=== PATIENT | male | born 1945 | race Caucasian/White ===

== ENCOUNTER 2021-12-01 13:37 | Outpatient (CLI) | payer MEDICARE, BC | END 2021-12-01 13:38 | disposition home or self-care (01) | LOC: CTENTCT 13:37 | PROVIDERS: ATTEND Specialist | DX: H92.10 Otorrhea, unspecified ear (principal) | CPT/HCPCS: 70480 ==

== ENCOUNTER 2022-10-22 17:30 | Emergency (ER) | payer MEDICARE, BC ==
[~2022-10-22 17:30] MED LIST: Iopamidol-370 76% 500 ML 1 ML ONE
[2022-10-22] MEDS ORDERED: Morphine 4 MG/ML VIAL ONE (17:45)
[2022-10-22 17:56] LABS: #Eosinphils 0.1 thou/uL (0.0-0.7); #Lymphocytes 2.2 thou/uL (1.20-3.40); #Monocytes 1.1 thou/uL (0.11-0.59); #Neutrophils 9.9 thou/uL (1.40-6.50); %Basophils 0.4 % (0.0-1.0); %Eosinophils 0.4 % (0.0-10.0); %Lymphocytes 16.7 % (21.0-51.0); %Monocytes 8.5 % (0.0-10.0); %Neutrophils 74.1 % (42.0-75.0); Mean Corpuscular HGB CONC 34.6 g/dL (32.0-36.0); Mean Corpuscular Hemoglobin 33.4 pg (27.0-31.0); Mean Corpuscular Volume 96.7 fl (78.0-98.0); Mean Platelet Volume 8.4 fL (7.4-10.4); Platelet Count 149 10x3/uL (130-400); RBC Distribution Width 11.7 % (11.5-14.5); Red Blood Cell (RBC) Count 4.78 mill/uL (4.70-6.10); White Blood Cell (WBC) Count 13.3 10x3/uL (4.8-10.8)
[2022-10-22 19:01] LABS: Bilirubin Negative (Negative); Blood, Urine Negative (Negative); Clarity Clear (Clear); Glucose, Urine (Dipstick) 200 mg/dL (Negative); Ketone, Urine Negative (Negative); Leukocyte Negative Leu/uL (Negative); Nitrite Negative (Negative); Protein, Urine (Dipstick) Negative (Neg-Trace); Specific Gravity, Urine 1.009 (1.002-1.036); Urobilinogen Normal mg/dL (Less than 2)
[2022-10-22 19:19] LABS: Albumin 4.2 g/dL (3.4-4.8)
[2022-10-22 19:20] LABS: Chloride 103 mmol/L (98-107); Potassium 4.4 mmol/L (3.5-5.1)
[2022-10-22 19:21] LABS: Calcium 10.1 mg/dL (7.8-10.44); Sodium 135 mmol/L (136-145)
[2022-10-22 19:22] LABS: Glucose 168 mg/dL (83-110); Protein, Total 7.2 g/dL (5.8-8.1)
[2022-10-22 19:23] LABS: Anion Gap 10 mmol/L (10-20); Bilirubin, Total 0.8 mg/dL (0.2-1.2); Carbon Dioxide 26 mmol/L (23-31)
[2022-10-22 19:24] LABS: Alkaline Phosphatase 59 U/L (40-110)
[2022-10-22 19:25] LABS: Calc. Creatinine Clearance 0 mL/min (70-130); Estimated GFR 73
[2022-10-22 19:26] LABS: BUN (Urea Nitrogen) 17 mg/dL (8.4-25.7)
[2022-10-22 19:27] LABS: ALT (SGPT) 10 U/L (8-55); AST (SGOT) 10 U/L (5-34)
[2022-10-22 19:28] LABS: Lipase 36 U/L (8-78)
[2022-10-22] MEDS ORDERED: Dicyclomine 20 MG/2 ML VIAL ONE (22:48)
[2022-10-22] MEDS ORDERED: hydrALAZINE 20 MG/ML VIAL ONE (22:48)
== END 2022-10-22 23:53 | disposition home or self-care (01) ==
LOC: ERS 17:30
DX: I10 Essential (primary) hypertension (principal); R10.819 Abdominal tenderness, unspecified site; D72.829 Elevated white blood cell count, unspecified; Z79.01 Long term (current) use of anticoagulants; Z79.84 Long term (current) use of oral hypoglycemic drugs
CPT/HCPCS: 36415; 74177; 80053; 81003; 83690; 85025; 93005; 96372; 96374; 96375; J0360; J2270; Q9967

== ENCOUNTER 2024-07-19 08:37 | Observation (INO) | payer MEDICARE, BC ==
[2024-07-19] MEDS ORDERED: Nitroglycerin 2% Ointment 1 INCH/1 GM Packet ONE (09:14)
[2024-07-19] MEDS ORDERED: Aspirin Chewable 81 MG TAB ONE (09:15)
[2024-07-19] MEDS ORDERED: Nitroglycerin 0.4 MG TAB 1 EACH ONE (09:15)
[2024-07-19 09:19] LABS: ALT (SGPT) 14 U/L (8-55); AST (SGOT) 13 U/L (5-34); Albumin 3.7 g/dL (3.4-4.8); Alkaline Phosphatase 54 U/L (40-110); Anion Gap 8 mmol/L (10-20); BUN (Urea Nitrogen) 18 mg/dL (8.4-25.7); Bilirubin, Total 0.6 mg/dL (0.2-1.2); Calc. Creatinine Clearance 0 mL/min (70-130); Calcium 9.7 mg/dL (7.8-10.44); Carbon Dioxide 26 mmol/L (23-31); Chloride 105 mmol/L (98-107); Estimated GFR 62; Glucose 240 mg/dL (83-110); Lipase 26 U/L (8-78); Potassium 4.3 mmol/L (3.5-5.1); Protein, Total 6.7 g/dL (5.8-8.1); Sodium 135 mmol/L (136-145)
[2024-07-19 09:24] LABS: Troponin I Less than 0.010 ng/mL (< 0.028)
[2024-07-19 09:32] LABS: #Basophils 0.03 10x3/uL (0.0-0.2); %Basophils 0.6 % (0.0-1.0); %Eosinophils 1.4 % (0.0-10.0); %Lymphocytes 25.2 % (21.0-51.0); %Monocytes 8.5 % (0.0-10.0); %Neutrophils 64.1 % (42.0-75.0); Hematocrit 43.6 % (42.0-52.0); Hemoglobin 15.1 g/dL (14.0-18.0); Mean Corpuscular HGB CONC 34.6 g/dL (32.0-36.0); Mean Corpuscular Hemoglobin 33.6 pg (27.0-31.0); Mean Corpuscular Volume 96.9 fL (78.0-98.0); Mean Platelet Volume 9.8 fL (7.4-10.4); Platelet Count 132 10x3/uL (130-400); RBC Distribution Width 12.1 % (11.5-14.5)
[2024-07-19] MEDS ORDERED: Ketorolac Tromethamine 30 MG (1 mL) VIAL IVP PRN (11:06)
[2024-07-19] MEDS ORDERED: Ondansetron PF 4 MG/2 ML Vial IVP PRN (11:06)
[2024-07-19] MEDS ORDERED: Calcium Carbonate 500 MG ChewTAB PO PRN (11:06)
[2024-07-19] MEDS ORDERED: Bisacodyl 10 MG SUPP PR PRN (11:06)
[2024-07-19] MEDS ORDERED: Guaifenesin DM 100-10/5 ML UDCUP PO PRN (11:06)
[2024-07-19] MEDS ORDERED: Iopamidol-370 76% 500 ML MDV (1 ML CHARGE) ONE (12:35)
[2024-07-19 12:50] VITALS: BMI 27.1
[2024-07-19 14:32] LABS: Troponin I Less than 0.010 ng/mL (< 0.028)
[2024-07-19] MEDS ORDERED: Albuterol 2.5 MG (3 mL) NEB NEB PRN (14:33)
[2024-07-19] MEDS ORDERED: Acetaminophen 500 MG TAB ONE (16:35)
[2024-07-19] MEDS: Acetaminophen 325 MG TAB PO PRN (16:38)
[2024-07-19 17:51] LABS: Troponin I Less than 0.010 ng/mL (< 0.028)
[2024-07-19] MEDS: methylPREDNISolone Sod Succ 40 MG VIAL IVP SCH (17:51)
[2024-07-19] MEDS: Gabapentin 300 MG CAP PO SCH (17:52)
[2024-07-19] MEDS: Cyclobenzaprine 10 MG TAB PO SCH (17:57)
[2024-07-19] MEDS: Senokot S 8.6-50 MG TAB PO SCH (20:29)
[2024-07-19] MEDS: Apixaban 5 MG TAB PO SCH (20:29)
[2024-07-19] MEDS: Zolpidem Tartrate 5 MG TAB PO PRN (21:31)
[2024-07-19] MEDS: methylPREDNISolone 4 mg Tablet PO SCH (22:09)
[2024-07-20 04:16] LABS: ALT (SGPT) 12 U/L (8-55); AST (SGOT) 12 U/L (5-34); Albumin 3.7 g/dL (3.4-4.8); Alkaline Phosphatase 51 U/L (40-110); Anion Gap 12 mmol/L (10-20); BUN (Urea Nitrogen) 15 mg/dL (8.4-25.7); Bilirubin, Total 0.6 mg/dL (0.2-1.2); Calc. Creatinine Clearance 74 mL/min (70-130); Calcium 9.8 mg/dL (7.8-10.44); Carbon Dioxide 21 mmol/L (23-31); Chloride 106 mmol/L (98-107); Estimated GFR 74; Globulin 3.1 g/dL (2.4-3.5); Glucose 194 mg/dL (83-110); Potassium 4.2 mmol/L (3.5-5.1); Protein, Total 6.8 g/dL (5.8-8.1); Sodium 135 mmol/L (136-145)
[2024-07-20 04:28] LABS: #Basophils 0.03 10x3/uL (0.0-0.2); #Eosinophils Less than 0.03 10x3/uL (0.0-0.7); %Basophils 0.3 % (0.0-1.0); %Eosinophils 0.1 % (0.0-10.0); %Monocytes 3.2 % (0.0-10.0); %Neutrophils 86.1 % (42.0-75.0); Hematocrit 42.4 % (42.0-52.0); Mean Corpuscular HGB CONC 35.4 g/dL (32.0-36.0); Mean Corpuscular Hemoglobin 32.8 pg (27.0-31.0); Mean Corpuscular Volume 92.6 fL (78.0-98.0); Mean Platelet Volume 10.6 fL (7.4-10.4); Platelet Count 130 10x3/uL (130-400); Red Blood Cell (RBC) Count 4.58 mill/uL (4.70-6.10)
[2024-07-20] MEDS ORDERED: FLU (Fluad Triv) TS24-25 (65UP)/MF59C/PF 45 MCG/0.5 ML Syringe IM ONE (09:00)
[2024-07-20 13:09] VITALS: TEMP 98
[2024-07-20 17:51] VITALS: BP 182/105
== END 2024-07-20 18:04 | disposition home or self-care (01) ==
LOC: ERS 08:37 → ERHOLD 11:19 → 2SW 17:05
PROVIDERS: ADMIT Internal Medicine; ATTEND Family Medicine
DX: S22.31XA Fracture of one rib, right side, initial encounter for closed fracture (principal); I10 Essential (primary) hypertension; I48.20 Chronic atrial fibrillation, unspecified; G47.00 Insomnia, unspecified; G62.9 Polyneuropathy, unspecified; X58.XXXA Exposure to other specified factors, initial encounter; Z79.01 Long term (current) use of anticoagulants
CPT/HCPCS: 71045; 71100; 71275; 74174; 80053 ×2; 82962; 83690; 84484 ×2; 85025 ×2; 93005; 99285; G0378 ×3; Q9967; 36415; 36416; J2919; J7509